=== PATIENT | female | born 1955 | race Hispanic/Latino ===

== ENCOUNTER 2021-07-02 16:52 | Emergency (ER) | payer OTHER ==
[~2021-07-02] VITALS: Ht 167.6 cm; Wt 83.0 kg
[2021-07-02 16:57] VITALS: BP 152/80
[2021-07-02] MEDS ORDERED: HYDROCODONE/ACETAMINOPHEN 10/325 MG TAB ONE (18:53)
[2021-07-02] MEDS ORDERED: NAPR-1180 PO (18:53)
[2021-07-02] MEDS ORDERED: HYDROCODONE/ACETAMINOPHEN 10/325 MG TAB PO ONE (19:00)
== END 2021-07-02 19:02 | disposition home or self-care (01) ==
LOC: EDH 16:52
DX: S40.012A Contusion of left shoulder, initial encounter (principal); W18.39XA Other fall on same level, initial encounter; Z79.1 Long term (current) use of non-steroidal anti-inflammatories (NSAID); Y93.89 Activity, other specified; Y92.89 Other specified places as the place of occurrence of the external cause; Y99.8 Other external cause status
CPT/HCPCS: 73030

== ENCOUNTER 2021-10-27 02:18 | Emergency (ER) | payer OTHER ==
[~2021-10-27] VITALS: Ht 162.6 cm; Wt 78.9 kg
[~2021-10-27 02:18] MED LIST: NAPR-1180 PO
[2021-10-27] MEDS ORDERED: NIRM1TAB5 PO (03:42)
[2021-10-27] MEDS ORDERED: ONDA4TAB10 PO (03:42)
[2021-10-27 03:47] VITALS: BP 145/83
== END 2021-10-27 04:09 | disposition home or self-care (01) ==
LOC: EDH 02:18
DX: U07.1 COVID-19 (principal); R50.9 Fever, unspecified; Z90.89 Acquired absence of other organs
CPT/HCPCS: 99283; 87635; 87804 ×2; C9803

== ENCOUNTER 2022-06-22 00:38 | Emergency (ER) | payer OTHER ==
[~2022-06-22] VITALS: Ht 170.2 cm; Wt 81.2 kg
[~2022-06-22 00:38] MED LIST changes: +NIRM1TAB5 PO; +ONDA4TAB10 PO
[2022-06-22] MEDS ORDERED: LACTATED RINGERS 1000ML IV SCH (01:00)
[2022-06-22] MEDS ORDERED: ONDANSETRON 4MG INJ IVP ONE (01:00)
[2022-06-22 01:14] LABS: APPEARANCE,URINE CLEAR (CLEAR); BILIRUBIN,URINE NEGATIVE (NEGATIVE); COLOR,URINE LIGHT-YELLOW (YELLOW); GLUCOSE, URINE (UA) NEGATIVE (NEGATIVE); KETONES,URINE 10 mg/dL (NEGATIVE); LEUKOCYTE ESTERASE ,URINE 25 Leu/uL (NEGATIVE); NITRATE,URINE NEGATIVE (NEGATIVE); OCCULT BLOOD,URINE NEGATIVE (NEGATIVE); PH,URINE 6.5 (5.0-8.0); PROTEIN,URINE NEGATIVE (NEGATIVE); UROBILINOGEN,URINE 0.2 mg/dL (0.2-1.0)
[2022-06-22 01:16] LABS: BASOPHILS % (AUTO) 0.1 % (0.0-5.0); EOSINOPHILS % (AUTO) 0.5 % (0.0-8.0); HEMATOCRIT 39.9 % (36-48); LYMPHOCYTES % (AUTO) 6.4 % (21.0-51.0); MEAN CORPUSCULAR HGB CONC 33.1 g/dL (32.0-36.0); MEAN CORPUSCULAR VOLUME 93.7 fL (79-99); MONOCYTES % (AUTO) 3.4 % (3.0-13.0); NEUTROPHILS % (AUTO) 89.4 % (40.0-77.0); PLATELET COUNT (AUTO) 268 K/uL (130-400); RED BLOOD CELL COUNT(AUTO) 4.26 MIL/uL (4.00-5.50); RED CELL DISTRIBUTION WIDTH 12.8 % (11.0-15.5); WHITE BLOOD COUNT (AUTO) 12.3 K/uL (4.8-10.8)
[2022-06-22 01:19] LABS: BACTERIA,URINE RARE /HPF (None Seen); MUCUS,URINE RARE LPF (None Seen); SQUAMOUS EPITHELIAL CELL,UR FEW /HPF (0-2)
[2022-06-22 01:26] LABS: CARBON DIOXIDE 27 mmol/L (21-32); CHLORIDE 100 mmol/L (101-111); CREATININE 0.8 mg/dL (0.5-1.5); GLOMERULAR FILTR. RATE CALC 82 mL/min (>90); GLUCOSE,RANDOM 135 mg/dL (70-105); POTASSIUM 3.9 mmol/L (3.5-5.1); SODIUM SERUM 137 mmol/L (136-145); UREA NITROGEN, BLOOD 19 mg/dL (7-18)
[2022-06-22 01:31] LABS: ALANINE AMINOTRANSFERASE 41 U/L (12-78); ALBUMIN 3.9 g/dL (3.5-5.0); ASPARTATE AMINOTRANSFERASE 27 U/L (10-37); TOTAL PROTEIN, SERUM 7.7 g/dL (6.0-8.3)
[2022-06-22 01:46] LABS: LIPASE < 50 U/L (114-286)
[2022-06-22] MEDS ORDERED: ONDA4TAB10 PO (02:20)
[2022-06-22 02:22] VITALS: BP 125/63
== END 2022-06-22 02:44 | disposition home or self-care (01) ==
LOC: EDH 00:38
DX: R11.2 Nausea with vomiting, unspecified (principal); T50.995A Adverse effect of other drugs, medicaments and biological substances, initial encounter; R19.7 Diarrhea, unspecified; Z20.822 Contact with and (suspected) exposure to COVID-19; Z79.899 Other long term (current) drug therapy; Y92.89 Other specified places as the place of occurrence of the external cause
CPT/HCPCS: 99283; 96374; 87635; 96361; 84484; 80053; 83690; 85025; 87804 ×2; 83605; 81001; 36415; C9803; J7120; J2405 ×2

== ENCOUNTER 2023-01-24 14:45 | Emergency (ER) | payer OTHER ==
[~2023-01-24] VITALS: Ht 167.6 cm; Wt 83.0 kg
[2023-01-24] MEDS ORDERED: CEPHALEXIN 500 MG CAPSULE PO ONE (16:00)
[2023-01-24 17:00] VITALS: BP 151/80; PULSE 77; RESP 18; O2SAT 99
[2023-01-24] MEDS ORDERED: CEPH500B PO (17:03)
== END 2023-01-24 17:12 | disposition home or self-care (01) ==
LOC: EDH 14:45
DX: L03.011 Cellulitis of right finger (principal); Z79.899 Other long term (current) drug therapy; W57.XXXA Bitten or stung by nonvenomous insect and other nonvenomous arthropods, initial encounter; Y93.89 Activity, other specified; Y92.89 Other specified places as the place of occurrence of the external cause; Y99.8 Other external cause status
CPT/HCPCS: 73130

== ENCOUNTER 2023-01-31 13:23 | Emergency (ER) | payer OTHER ==
[~2023-01-31] VITALS: Ht 165.1 cm; Wt 83.0 kg
[~2023-01-31 13:23] MED LIST changes: +CEPH500B PO
[2023-01-31 14:45] LABS: BASOPHILS # (AUTO) 0.04 K/uL (0.00-0.20); BASOPHILS % (AUTO) 0.6 % (0.0-5.0); EOSINOPHILS # (AUTO) 0.07 K/uL (0.00-0.70); EOSINOPHILS % (AUTO) 1.1 % (0.0-8.0); HEMATOCRIT 38.8 % (36-48); IMMATURE GRANULOCYTE ABSOLUTE 0.02 K/uL (0-1); LYMPHOCYTES % (AUTO) 29.8 % (21.0-51.0); MEAN CORPUSCULAR HEMOGLOBIN 31.3 pg (27.0-33.0); MEAN CORPUSCULAR HGB CONC 33.2 g/dL (32.0-36.0); MEAN CORPUSCULAR VOLUME 94.2 fL (79-99); MONOCYTES # (AUTO) 0.5 K/uL (0.1-1.0); MONOCYTES % (AUTO) 7.3 % (3.0-13.0); NEUTROPHILS % (AUTO) 60.9 % (40.0-77.0); PLATELET COUNT (AUTO) 269 K/uL (130-400); RED BLOOD CELL COUNT(AUTO) 4.12 MIL/uL (4.00-5.50); RED CELL DISTRIBUTION WIDTH 12.7 % (11.0-15.5); WHITE BLOOD COUNT (AUTO) 6.6 K/uL (4.8-10.8)
[2023-01-31 14:57] LABS: CREATININE 0.8 mg/dL (0.5-1.5); POTASSIUM 3.7 mmol/L (3.5-5.1)
[2023-01-31 16:20] VITALS: BP 128/72; PULSE 74; RESP 18; O2SAT 98
== END 2023-01-31 16:31 | disposition home or self-care (01) ==
LOC: EDH 13:23
DX: Z02.89 Encounter for other administrative examinations (principal)
CPT/HCPCS: 36415; 80048; 85025

== ENCOUNTER → 2023-02-11 | Outpatient (CLI) | payer OTHER | LOC: LAB 15:06 | PROVIDERS: ATTEND Internal Medicine Cardiovascular Disease | DX: R07.9 Chest pain, unspecified (principal) | CPT/HCPCS: 84484 ==

== ENCOUNTER → 2023-02-19 | Outpatient (CLI) | payer OTHER | END | disposition home or self-care (01) | LOC: OIH 09:34 | PROVIDERS: ATTEND Internal Medicine Cardiovascular Disease | DX: Z13.6 Encounter for screening for cardiovascular disorders (principal); R07.9 Chest pain, unspecified | CPT/HCPCS: 75571 ==

== ENCOUNTER 2023-04-14 10:47 | Emergency (ER) | payer MEDICARE, OTHER ==
[~2023-04-14] VITALS: Ht 167.6 cm; Wt 83.0 kg
[2023-04-14 11:09] VITALS: BP 144/92; PULSE 56; RESP 18
[2023-04-14 11:34] LABS: RAPID GROUP A STREP negative (NEGATIVE)
[2023-04-14 11:35] LABS: BASOPHILS # (AUTO) 0.05 K/uL (0.00-0.20); BASOPHILS % (AUTO) 0.8 % (0.0-5.0); EOSINOPHILS # (AUTO) 0.05 K/uL (0.00-0.70); EOSINOPHILS % (AUTO) 0.8 % (0.0-8.0); HEMATOCRIT 40.2 % (36-48); IMMATURE GRANULOCYTE ABSOLUTE 0.02 K/uL (0-1); LYMPHOCYTES # (AUTO) 2.1 K/uL (1.0-4.8); LYMPHOCYTES % (AUTO) 35.4 % (21.0-51.0); MEAN CORPUSCULAR HEMOGLOBIN 31.8 pg (27.0-33.0); MEAN CORPUSCULAR HGB CONC 33.1 g/dL (32.0-36.0); MEAN CORPUSCULAR VOLUME 96.2 fL (79-99); MONOCYTES # (AUTO) 0.5 K/uL (0.1-1.0); MONOCYTES % (AUTO) 7.6 % (3.0-13.0); NEUTROPHILS # (AUTO) 3.2 K/uL (1.8-7.7); NEUTROPHILS % (AUTO) 55.1 % (40.0-77.0); PLATELET COUNT (AUTO) 255 K/uL (130-400); RED BLOOD CELL COUNT(AUTO) 4.18 MIL/uL (4.00-5.50); RED CELL DISTRIBUTION WIDTH 12.3 % (11.0-15.5); WHITE BLOOD COUNT (AUTO) 5.9 K/uL (4.8-10.8)
[2023-04-14 11:36] LABS: SARS-CoV-2, RNA, NAAT NEGATIVE SARS CoV-2 (NEGATIVE)
[2023-04-14 11:44] LABS: CREATININE 0.7 mg/dL (0.5-1.5); POTASSIUM 3.8 mmol/L (3.5-5.1)
[2023-04-14 11:44] LABS: INFLUENZA TYPE A Negative For Type A (NEGATIVE); INFLUENZA TYPE B Negative For Type B (NEGATIVE)
[2023-04-14 11:45] LABS: APPEARANCE,URINE CLEAR (CLEAR); BILIRUBIN,URINE NEGATIVE (NEGATIVE); COLOR,URINE LIGHT-YELLOW (YELLOW); GLUCOSE, URINE (UA) NEGATIVE (NEGATIVE); KETONES,URINE NEGATIVE (NEGATIVE); LEUKOCYTE ESTERASE ,URINE 25 Leu/uL (NEGATIVE); NITRATE,URINE NEGATIVE (NEGATIVE); PH,URINE 5.5 (5.0-8.0); PROTEIN,URINE NEGATIVE (NEGATIVE); UROBILINOGEN,URINE 0.2 mg/dL (0.2-1.0)
[2023-04-14 11:48] LABS: ALBUMIN 3.6 g/dL (3.5-5.0); BILIRUBIN,TOTAL 0.2 mg/dL (0.2-1.0); TOTAL PROTEIN, SERUM 7.5 g/dL (6.0-8.3)
[2023-04-14 11:52] LABS: ADD UA MICROSCOPIC YES
[2023-04-14 12:00] LABS: BACTERIA,URINE RARE /HPF (None Seen); MUCUS,URINE RARE LPF (None Seen); SQUAMOUS EPITHELIAL CELL,UR FEW /HPF (0-2)
[2023-04-14] MEDS ORDERED: CEPH500B PO (14:01)
[2023-04-14] MEDS ORDERED: ONDANSETRON ODT 4MG TAB SL ONE (14:30)
[2023-04-14] MEDS ORDERED: ONDA4TAB10 PO (18:06)
== END 2023-04-14 14:26 | disposition home or self-care (01) ==
LOC: EDH 10:47
DX: N39.0 Urinary tract infection, site not specified (principal); R11.2 Nausea with vomiting, unspecified; Z20.822 Contact with and (suspected) exposure to COVID-19; Z79.899 Other long term (current) drug therapy
CPT/HCPCS: 36415; 80053; 81001; 83690; 85025; 87635; 87804; 87880

== ENCOUNTER → 2023-09-09 | Outpatient (CLI) | payer OTHER ==
[~2023-09-09] MED LIST changes: +ONDA-243 PO; -ONDA4TAB10 PO
== END | disposition home or self-care (01) ==
LOC: RAH 09:52
PROVIDERS: ATTEND Family Medicine
DX: M79.605 Pain in left leg (principal); M79.604 Pain in right leg; R60.0 Localized edema
CPT/HCPCS: 93925; 93970

== ENCOUNTER 2025-04-04 09:53 | Emergency (ER) | payer OTHER ==
[~2025-04-04] VITALS: Ht 167.6 cm; Wt 78.9 kg
[2025-04-04 09:55] VITALS: BP 148/86; PULSE 69; RESP 16; TEMP 98
--- NOTE | 2025-04-04 10:15 | ERN ---
General Chief Complaint: Abrasion Stated Complaint: LEFT HAND, CAT SCRATCH Time Seen by MD: 10:12 Source: patient History of Present Illness Initial Comments The patient is a 69-year-old female who was scratched by a cat today in the morning Timing/Duration: 1-3 hours Allergies: Coded Allergies: No Known Allergies (Unverified Allergy, Unknown, 07/02/21) Home Meds Active Scripts Ondansetron (Ondansetron Odt) 4 Mg Tab.rapdis, 4 MG PO TID, #12 TAB Prov:RAFITA HEWITT [employer]ILDING [employer]INTENA[employer]CE [employer]ODIAN 04/14/23 Cephalexin Monohydrate (Keflex) 500 Mg Cap, 500 MG PO TID for 7 Days, #21 CAP Prov:RAFITA HEWITT [employer] BUILDING MAINTENANCE CUSTODIAN 04/14/23 Cephalexin Monohydrate (Keflex) 500 Mg Cap, 500 MG PO TID for 7 Days, #21 CAP Prov:PHYLLIS GOODRICH BUILDING MAINTENANCE CUSTODIAN 01/24/23 Ondansetron (Ondansetron Odt) 4 Mg Tab.rapdis, 4 MG PO Q6H for 2 Days, #8 TAB Prov:JACOB CASILLAS MD 06/22/22 Ondansetron (Ondansetron Odt) 4 Mg Tab.rapdis, 4 MG PO TIDP PRN for NAUSEA/VOMITING, #12 TAB 0 Refills Prov:JOSE ANGEL MCBRIDE MD 10/27/21 Nirmatrelvir/Ritonavir (Paxlovid 150-100 mg Pack (Eua)) 1 Each Tablet, 1 EACH PO BID for 5 Days, #10 TAB 0 Refills Prov:JOSE ANGEL MCBRIDE MD 10/27/21 Naproxen (Naprosyn) 500 Mg Tablet, 500 MG PO BIDPC, #60 TAB Prov:ROLANDO LOCKHART 07/02/21 Past Medical History Past Medical History: No Pertinent History Medical History Other: PRE-DIABETIC Past Surgical History: None Family History Family History: Negative Social History Social History: Negative, Lives with family, Other Female( History) History: Not Applicable Skin: (+) abrasion Physical Exam General Appearance: (+) no apparent distress Orientation: (+) alert, (+) oriented x 3 Head/Face Trauma: No Ear, Nose, Throat: (+) hearing grossly normal Skin Comment Scratch alphonse on left hand MDM MDM: Differential diagnosis: Rationale: Tests considered and ordered secondary to shared decision making include: Previous outside records reviewed: Old ER visits. Risk of complication and/or morbidity or mortality of patient management: None Medications-Per medication reconciliation Need for hospitalization: Patient does not meet criteria for hospitalization. Need for emergency major/minor surgery: No There are no social concerns with this patient. Prescription drug management Prescriptions will include symptomatic care Patient's prior external medical records from other ER visits were reviewed by me as indicated. Prior testing and results from previous visits were reviewed. Prior tests were taken into account with medical decision making and resource utilization, independent historian/historians were used to obtain complete medical history. I independently interpreted the test that were performed, results were reviewed by me and considered findings on radiology if ordered. Medical management and examination interpretation discussions were had by me with other qualified healthcare professionals as indicated for the patient's care. ED Course Orders Procedure Category Date Status Time Tetanus,Diphtheria PHA 04/04/25 In Process Tox [Adult] (Diphther 10:30 Current Medications Medications (Trade) Dose Ordered Sig/Elodia Route PRN Reason Start Time Stop Time Status Last Admin Dose Admin Tetanus/ Diphtheria Toxoids Adsorbed (DiphthERIA-teTANUS TOXOID [ADULT]/ DECAVAC) 0.5 ml ONCE ONCE IM 04/04/25 10:30 04/04/25 10:31 Vital Signs Date Time Temp Pulse Resp B/P (MAP) Pulse Ox O2 Delivery O2 Flow Rate FiO2 04/04/25 09:55 98.1 69 16 148/86 97 Room Air 0 DX & DISP Disposition: Discharge Departure Impression: Primary Impression: Abrasion Condition: Stable Scripts Amoxicillin/Potassium Clav (Amox Tr-K Clv 875-125 mg Tab) 875 Mg-125 Mg Tablet 1 EACH PO BID for 5 Days, #10 TAB 0 Refills Prov: JASKARAN BAKER MD 04/04/25 Referrals: MEÑO SANCHES (PCP) JOSI AGUILAR MD Apr 04, 2025 10:15 JASKARAN BAKER MD Apr 04, 2025 10:22
[2025-04-04] MEDS ORDERED: AMOX1TAB16 PO (10:22)
== END 2025-04-04 10:47 | disposition home or self-care (01) ==
LOC: EDH 09:53
DX: S60.512A Abrasion of left hand, initial encounter (principal); W55.03XA Scratched by cat, initial encounter; Y93.89 Activity, other specified; Y92.89 Other specified places as the place of occurrence of the external cause; Y99.8 Other external cause status
CPT/HCPCS: 90471; 90714; 99283